=== PATIENT | male | born 1940 | race Caucasian/White ===

== ENCOUNTER 2020-07-21 16:21 | Emergency (ER) | payer OTHER ==
[~2020-07-21] VITALS: Ht 185.4 cm; Wt 99.3 kg
[~2020-07-21 16:21] MED LIST: ALEVE220 M1 PO; ASPIR 8181 MG PO; EFFIENT10 MG PO; FISH OIL 1,001000 M2 PO; IMDUR 30 MG TAB30 M1 PO; LOPRESSOR25 PO; OMEPRAZOLE20 M2 PO; SLEEP AID25 MG PO; VITAMIN B-12500 MCG PO; VITAMIN D-32000 UNIT PO; VITAMINC500 PO; VYTORIN 10-401 EACH PO
--- NOTE | 2020-07-21 16:43 | EKG ---
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 : 1940 Requested By: Vishal Tinsley Order Number: [id number] MD: Rohan Rubin Measurements Intervals [place] Rate: 66 P: 6 NC: 146 QRS: -84 QRSD: 150 T: 15 QT: 426 QTc: 447 Interpretive Statements Sinus rhythm Supraventricular bigeminy RBBB and LAFB Compared to ECG 04/09/2015 08:26:00 Atrial premature complex(es) now present Sinus bradycardia no longer present Bifascicular block no longer present Electronically Signed On 07-21-2020 16:43:23 CDT by Rohan Rubin [email or web address] <ELECTRONICALLY SIGNED> By: Rohan Rubin MD, FACC 07/21/20 1643 1626 1626 Rohan Rubin MD, [facility] /EPI
[2020-07-21 16:52] LABS: ABSOLUTE NEUTROPHILS 5.4 thou/uL (1.4-8.2); BASOPHILS 1.3 % (0.0-2.0); EOSINOPHILS 3.9 % (0.0-3.0); HEMATOCRIT 41.8 % (42.0-52.0); MCH 30.4 pg (26.0-34.0); MCHC 33.6 g/dL (28.0-37.0); MCV 90.4 fL (80.0-100.0); MONOCYTES 8.6 % (1.0-8.0); PLATELET COUNT 334 thou/uL (150-400); POLYS 65.2 % (36.0-66.0); RBC 4.63 mil/uL (4.50-6.00); WBC 8.2 thou/uL (4.0-11.0)
[2020-07-21] MEDS ORDERED: RAMIPRIL10 MG PO (16:57)
[2020-07-21] MEDS ORDERED: OMEPRAZOLE40 MG PO (16:57)
[2020-07-21 17:19] LABS: ANION GAP 12 mmol/L (7-16); BUN 17 mg/dL (7-18); CALCIUM 8.6 mg/dL (8.5-10.1); CHLORIDE 107 mmol/L (98-107); CO2 24 mmol/L (21-32); CREATININE 0.9 mg/dL (0.7-1.3); GLUCOSE 125 mg/dL (74-106); SODIUM 143 mmol/L (136-145)
[2020-07-21 17:27] LABS: TROPONIN-I <0.06 ng/mL (<0.06)
[2020-07-21] MEDS ORDERED: NITROSTAT0.3 MG SUBLING (17:44)
[2020-07-21 18:10] VITALS: BP 135/76
--- NOTE | 2020-07-22 08:22 | EKG ---
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
== END 2020-07-21 18:11 | disposition home or self-care (01) ==
LOC: ER 16:21
PROVIDERS: Emergency Medicine
DX: R07.9 Chest pain, unspecified (principal); R20.0 Anesthesia of skin; I25.10 Atherosclerotic heart disease of native coronary artery without angina pectoris; E78.5 Hyperlipidemia, unspecified; Z95.5 Presence of coronary angioplasty implant and graft; Z79.899 Other long term (current) drug therapy; Z79.82 Long term (current) use of aspirin